=== PATIENT | female | born 1960 | race Caucasian/White ===

== ENCOUNTER → 2019-07-20 | Emergency (ER) | payer SELFPAY ==
[~2019-07-20] VITALS: Ht 165.1 cm; Wt 61.2 kg
[~2019-07-20] MED LIST: HYDROcodone-ACET 10/325MG TAB PO ONE; HYDROcodone-ACET 5/325MG TAB PO ONE
[2019-07-20 15:59] VITALS: BP 133/83
== END | disposition home or self-care (01) ==
LOC: EDBD 15:53 → ER 15:53
DX: S83.105A Unspecified dislocation of left knee, initial encounter (principal); S76.812A Strain of other specified muscles, fascia and tendons at thigh level, left thigh, initial encounter; X50.1XXA Overexertion from prolonged static or awkward postures, initial encounter; Y93.89 Activity, other specified; Y92.89 Other specified places as the place of occurrence of the external cause; Y99.8 Other external cause status
CPT/HCPCS: 73560; 73562

== ENCOUNTER 2020-08-06 22:04 | Emergency (ER) | payer OTHER ==
[~2020-08-06] VITALS: Ht 165.1 cm; Wt 63.5 kg
[2020-08-07] MEDS ORDERED: KETOROLAC TROMETH 60MG/2ML VIAL IM ONE (02:30)
[2020-08-07 03:20] VITALS: BP 139/84
== END 2020-08-07 03:15 | disposition home or self-care (01) ==
LOC: ER 22:04
DX: S82.821A Torus fracture of lower end of right fibula, initial encounter for closed fracture (principal); Z90.710 Acquired absence of both cervix and uterus; X50.1XXA Overexertion from prolonged static or awkward postures, initial encounter; Y93.89 Activity, other specified; Y92.89 Other specified places as the place of occurrence of the external cause; Y99.8 Other external cause status
CPT/HCPCS: 29515; 73610; 96372; 99283; J1885